=== PATIENT | male | born 1995 | race Caucasian/White ===

== ENCOUNTER → 2017-06-29 | Outpatient (CLI) | payer OTHER ==
--- NOTE | 2017-06-29 14:40 | XR ---
EXAMINATION TYPE: XR thoracic spine complete DATE OF EXAM: 06/29/2017 CLINICAL HISTORY: Fall with mid back pain. TECHNIQUE: Frontal, lateral, and swimmer's view of thoracic spine are obtained. COMPARISON: None. FINDINGS: Thoracic spine show satisfactory alignment without evidence of acute fracture or dislocatio n. Vertebral body heights and disc space heights are preserved. Visualized ribs are unremarkable. Mild degenerative changes of the thoracic spine are noted. IMPRESSION: No acute fracture or dislocation is seen in the thoracic spine.
--- NOTE | 2017-06-29 14:42 | XR ---
EXAMINATION TYPE: XR cervical spine comp DATE OF EXAM: 06/29/2017 COMPARISON: NONE HISTORY: 22 year old male with back and neck pain, strain. TECHNIQUE: 4 views FINDINGS: No predental space widening or prevertebral soft tissue swelling. There is normal alignment of the ce rvical spine. No acute fracture. No significant bony spondylotic neural foraminal narrowing on either side. IMPRESSION: No acute fracture or malalignment.
== END | disposition home or self-care (01) ==
LOC: RADXRMAIN 13:58
PROVIDERS: ATTEND Emergency Medicine
DX: S13.4XXA Sprain of ligaments of cervical spine, initial encounter (principal); S23.3XXA Sprain of ligaments of thoracic spine, initial encounter
CPT/HCPCS: 72050; 72072

== ENCOUNTER → 2018-06-04 | Outpatient (CLI) | payer OTHER ==
--- NOTE | 2018-06-04 16:41 | XR ---
EXAMINATION TYPE: XR cervical spine comp DATE OF EXAM: 06/04/2018 COMPARISON: 06/29/2017 HISTORY: 23-year-old male with pain after fall on steps TECHNIQUE: 6 views FINDINGS: Oblique views show no significant bony neuroforaminal narrowing on either side. No predental space wi dening or prevertebral soft tissue swelling. There is preserved alignment of the cervical spine. Norm al odontoid view. No acute fracture is identified. IMPRESSION: No acute fracture, prevertebral soft tissue swelling, or malalignment identified radiographically.
--- NOTE | 2018-06-04 16:42 | XR ---
EXAMINATION TYPE: XR thoracic spine complete DATE OF EXAM: 06/04/2018 COMPARISON: 06/29/2017 HISTORY: 23-year-old male pain after fall on steps TECHNIQUE: 3 views FINDINGS: Slight dextroconvex curvature could be positional. 12 rib bearing thoracic vertebral bodies. All pedi cles are visualized. Vertebral body heights are preserved and alignment is maintained. IMPRESSION: Slight dextroconvex curvature could be positional or due to muscle spasm. No vertebral compression co llapse or malalignment.
--- NOTE | 2018-06-04 16:43 | XR ---
EXAMINATION TYPE: XR shoulder complete LT DATE OF EXAM: 06/04/2018 COMPARISON: NONE HISTORY: Shoulder pain TECHNIQUE: 3 views FINDINGS: I see no fracture nor dislocation. Joint spaces are normal. There are no pathologic calcifi cations. IMPRESSION: Negative left shoulder exam
== END | disposition home or self-care (01) ==
LOC: RADXRMAIN 16:03
PROVIDERS: ATTEND Emergency Medicine
DX: S13.4XXA Sprain of ligaments of cervical spine, initial encounter (principal); S20.222A Contusion of left back wall of thorax, initial encounter
CPT/HCPCS: 72050; 72072